=== PATIENT | female | born 1950 | race Caucasian/White ===

== ENCOUNTER 2019-01-18 11:35 | Emergency (ER) | payer OTHER ==
--- NOTE | 2019-01-18 12:48 | EDPHY ---
H & P Stated Complaint: c/o ongoing mireles after ending use of thiothixene Time Seen by Provider: 01/18/19 12:42 HPI/ROS: CHIEF COMPLAINT: Headache HISTORY OF PRESENT ILLNESS: Patient is a 68-year-old female who is been taking thiothixene for 36 years for history of schizoaffective disorder. She also has a history of migraines. She states that there was a problem with the manufacturing of this medication and it was discontinued a few weeks ago. She has also recently moved here to [place] wound does not yet have a psychiatrist here. She does see her primary doctor Murphy. After discontinuing the medicine she developed a headache which she states she has had for the last 13 days. She states that Dr. Arrington and has increased her Seroquel and also added Abilify. This has improved her headache to some degree but she is still having an almost constant low-grade headache that is holocephalic. No focal weakness or deficits. No trauma. No fever. No neck pain or stiffness. No stroke-like symptoms. She also takes large doses of oxycodone and OxyContin for chronic low back pain. She states that this is not helping with her headache. She is here requesting migraine medicine and referral to mental health. Severity: Moderate Modifying factors: None REVIEW OF SYSTEMS: Constitutional: denies: chills, fever, recent illness, recent injury EENTM: denies: blurred vision, double vision, nose congestion Respiratory: denies: cough, shortness of breath Cardiac: denies: chest pain, irregular heart rate, lightheadedness, palpitations Gastrointestinal/Abdominal: denies: abdominal pain, diarrhea, nausea, vomiting, blood streaked stools Genitourinary: denies: dysuria, frequency, hematuria, pain Musculoskeletal: denies: joint pain, muscle pain Skin: denies: lesions, rash, jaundice, bruising Neurological: See HPI denies: numbness, paresthesia, tingling, dizziness, weakness Hematologic/Lymphatic: denies: blood clots, easy bleeding, easy bruising Immunologic/allergic: denies: HIV/AIDS, transplant 10 systems reviewed and negative except as noted EXAM: GENERAL: Well-appearing, well-nourished and in no acute distress. HEAD: Atraumatic, normocephalic. EYES: Pupils equal round and reactive to light, extraocular movements intact, sclera anicteric, conjunctiva are normal. ENT: TMs normal, nares patent, oropharynx clear without exudates. Moist mucous membranes. NECK: Normal range of motion, supple without lymphadenopathy or JVD. LUNGS: Breath sounds clear to auscultation bilaterally and equal. No wheezes rales or rhonchi. HEART: Regular rate and rhythm without murmurs, rubs or gallops. ABDOMEN: Soft, nontender, normoactive bowel sounds. No guarding, no rebound. No masses appreciated. BACK: No CVA tenderness, no spinal tenderness, step-offs or deformities EXTREMITIES: Normal range of motion, no pitting or edema. No clubbing or cyanosis. NEUROLOGICAL: Cranial nerves II through XII grossly intact. Normal speech, normal gait. 5/5 strength, normal movement in all extremities, normal sensation , normal reflexes PSYCH: Normal mood, normal affect. SKIN: Warm, dry, normal turgor, no visible rashes or lesions. Source: Patient Exam Limitations: No limitations - Medical/Surgical History Hx Asthma: No Hx Chronic Respiratory Disease: Yes Hx Diabetes: No Hx Cardiac Disease: Yes Hx Renal Disease: No Hx Cirrhosis: No Hx Alcoholism: No Hx HIV/AIDS: No Hx Splenectomy or Spleen Trauma: No Other PMH: migraines, hyperlipedemia, htn, hypothyroid, chronic lower back pain - spinal stenois, cervical stenosis, copd, schizoaffective, tubal ligation, hysterectomy, bilat shoulder replace, bilat hip replacement, osteoporosis - Family History Significant Family History: No pertinent family hx - Social History Smoking Status: Current some day smoker Alcohol Use: Sober Drug Use: None Constitutional: Initial Vital Signs Temperature (C) 36.7 C 01/18/19 11:41 Heart Rate 71 01/18/19 11:41 Respiratory Rate 18 01/18/19 11:41 Blood Pressure 171/85 H 01/18/19 11:41 O2 Sat (%) 90 L 01/18/19 11:41 O2 Delivery Mode Room Air O2 (L/minute) 2 Allergies/Adverse Reactions: adhesive tape Allergy (Verified 01/18/19 11:55) morphine Allergy (Verified 01/18/19 11:55) phenylpropanolamine Allergy (Verified 01/18/19 11:55) Sulfa (Sulfonamide Antibiotics) Allergy (Verified 01/18/19 11:55) dust Allergy (Uncoded 01/18/19 11:55) Home Medications: Medication Instructions Recorded Metoclopramide [Reglan 10 mg tab 10 mg PO BID PRN #10 tab 01/18/19 (RX)] Medical Decision Making ED Course/Re-evaluation: The patient has no stroke-like symptoms. She has a mild chronic headache that she and her primary doctor feel is due to withdraw from her long-standing antipsychotic medications. Her primary has been attempting to make medication changes to help with this. It does help to some degree but now the patient is asking for migraine time medicine as well. In the past she has taken midrine but is open to other options. I will treat her with Reglan and give her a short prescription. She does not wish to have a workup here in the department. She does request to be referred to a psychiatrist who could prescribe her antipsychotic. I will refer her to mental health. Differential Diagnosis: Partial list of the Differential diagnosis considered include but were not limited to; headache, withdrawal, and although unlikely based on the history and physical exam, I also considered trauma, fever, infection, seizure. - Data Points Medications Given: Discontinued Medications Metoclopramide HCl (Reglan) 10 mg PO EDNOW ONE Stop: 01/18/19 12:54 Last Admin: 01/18/19 12:57 Dose: 10 mg Departure - Departure Disposition: Home, Routine, Self-Care Clinical Impression: Headache Qualifiers: Headache type: unspecified Headache chronicity pattern: acute headache Intractability: not intractable Qualified Code(s): R51 - Headache Condition: Fair Instructions: Tension Headache (ED) Referrals: Anita Javed MD [Primary Care Provider] - 2-3 days, if not improved [facility] [Clinic] - 2-3 days, if not improved Prescriptions: Metoclopramide [Reglan 10 mg tab (RX)] 10 mg PO BID PRN #10 tab PRN Reason: Headache
[2019-01-18] MEDS ORDERED: METOCLOPRAMIDE 10 MG/2 ML VIAL IVP ONE (12:50)
[2019-01-18] MEDS ORDERED: METOCLOPRAMIDE 10 MG TAB PO ONE (12:53)
[2019-01-18 13:37] VITALS: BP 155/91
== END 2019-01-18 13:37 | disposition home or self-care (01) ==
DX: R51 Headache (principal); F20.89 Other schizophrenia; E78.5 Hyperlipidemia, unspecified; E03.9 Hypothyroidism, unspecified; I10 Essential (primary) hypertension